=== PATIENT | male | born 1970 | race Caucasian/White ===

== ENCOUNTER 2024-04-21 21:47 | Emergency (ER) | payer MEDICARE, OTHER, SELFPAY ==
[2024-04-21 21:57] VITALS: BP 121/74
[2024-04-21 22:16] LABS: % Basophils 0.6 % (0-2); % Eosinophils 1.6 % (0-6); % Immature Granulocytes 0.3 % (0-0.5); % Lymphocytes 37.5 % (20.5-51.1); % Monocytes 8.6 % (1.7-9.3); % Neutrophils 51.4 % (42.2-75.2); Absolute Eosinophils 0.1 10^3/uL (0-0.7); Absolute Lymphocytes 2.5 10^3/uL (1.2-3.4); Absolute Monocytes 0.6 10^3/uL (0.1-0.6); Absolute Neutrophils 3.5 10^3/uL (1.4-6.5); Hematocrit 43.1 % (39.0-52.0); Hemoglobin 14.6 g/dL (13.0-18.0); Mean Corp Hgb Conc. 33.9 g/dL (33.0-37.0); Mean Corpuscular Hgb 30.4 pg (27.0-31.0); Mean Corpuscular Volume 89.6 fL (80.0-94.0); Mean Platelet Volume 10.3 fL (7.4-10.4); Nucleated Red Blood Cells % 0 % (-); Platelet Count 218 10^3/uL (130-400); Red Blood Cell Count 4.81 10^6/uL (4.70-6.10); Red Cell Dist. Width 13.3 % (11.5-14.5); White Blood Cell Count 6.8 10^3/uL (4.8-10.8)
[2024-04-21 22:32] LABS: ALT (SGPT) 38 U/L (0-50); AST (SGOT) 28 U/L (17-59); Albumin 4.5 g/dl (3.5-5.0); Alkaline Phosphatase 43 U/L (38-126); Blood Urea Nitrogen 24 mg/dl (9-20); Calcium 9.4 mg/dl (8.4-10.2); Carbon Dioxide 24 mmol/L (22-30); Chloride 103 mmol/L (98-107); Glucose 105 mg/dl (70-99); Potassium 4.3 mmol/L (3.5-5.1); Sodium 138 mmol/L (135-145); Total Bilirubin 0.7 mg/dl (0.2-1.3); Total Protein 7.1 g/dl (6.3-8.2); eGFR > 60.00
[2024-04-21 22:43] LABS: Troponin I < 0.012 ng/ml
[2024-04-22 01:02] VITALS: BP 111/69
--- NOTE | 2024-04-22 01:43 | ED.GENMED ---
History of Present Illness
General
Chief Complaint: Chest Pain
Source: patient
Exam Limitations: none
Time Seen by Provider: 04/22/24 01:34
History of Present Illness
History of Present Illness:
This is a 53 year old male that comes in with c/o left sided chest pain. Son states that he has had pain under his heart and in the middle of his chest all day. State that when he leans forward he has pain. States that this has been constant all
day. States that he has slight SOB with the pain. Patient states that he has a history of Gastritis. Denies any fever, chills, abd pain, nausea, vomiting, diarrhea, headache, dizziness, urinary burning.
Past History
Past History
ED Past Medical History: None; Negative Asthma, HTN, Hypercholesterolemia or NIDDM
ED Past Surgical History: None
Social History
Tobacco: Non-smoker
Alcohol: None
Drug: None
Personal:
Living: with family
Review of Systems
Review of Systems
All Other Systems: ROS reviewed and negative except as documented in HPI and ROS
Constitutional: Reports no symptoms; Denies fever or chills
EENT: Reports no symptoms
Respiratory: Reports trouble breathing (with pain); Denies cough
Cardiac: Reports chest pain
ABD/GI: Reports no symptoms; Denies abdominal pain, nausea, vomiting or diarrhea
: Reports no symptoms; Denies dysuria, frequency or urgency
Musculoskeletal: Reports no symptoms
Skin: Reports no symptoms
Neurological: Reports no symptoms; Denies dizzy or headache
Psychiatric: Reports no symptoms
Phy Exam
General Physical Exam
General Presentation: well appearing and no apparent distress
General age: appears stated age
General Skin: warm and dry
General Habitus: normal
General Mental: alert
General Hydration: appears well hydrated
ENT Exam
ENT Exam: TM's normal, pharynx normal and neck supple
Eye Exam
Eye Exam: EOMI
Cardiovascular Exam
Cardiovascular Exam: regular rate/rhythm, no edema and normal peripheral pulses
Pulmonary Exam
Pulmonary Exam: lungs clear, no respiratory distress, no rales, chest non tender, no crackles, no rhonchi, no wheezing and no cough
Gastrointestinal Exam
Gastrointestinal Exam: normal bowel sounds, soft, no organomegaly, no pulsatile mass, non distended and tender (Epigastric area with palpation)
Musculoskeletal Exam
Musculoskeletal Exam: full ROM and no edema
Skin Exam
Skin Exam: normal color, warm/dry, no rash and no petechia
Psychiatric Exam
Psychiatric Exam: normal mood/affect
Scores
Heart Score for Chest Pain Patients
STEMI patient?: No
History: Slightly or Non-Suspicious
ECG: Normal
Age: >45 - <65 years
Risk Factors: No Risk Factors
Troponin: </= Normal Limit
Heart Score for Chest Pain Patients: 1
Heart Score Risk: 2.5% MACE over next 6 weeks
Course
Orders/Labs/Results
Orders:
Orders
04/21/24 21:59
Electrocardiogram (*1) Urgent
Reason for Study: Chest Pain
EKG- Treatment ONCE
CXR2 [CR Chest - 2 Views ] Urgent
Comment:
Reason For Exam: chest pain
04/21/24 22:07
Complete Blood Count/With Diff Urgent
Comprehensive Metabolic Panel Urgent
Troponin I Urgent
04/22/24 01:42
Ketorolac [Toradol] 60 mg IM NOW STA
Pantoprazole [Protonix] 40 mg PO NOW STA
Sucralfate Suspension [Carafate Suspension] 1 gm PO NOW STA
Abnormal Lab Results
04/21/24
22:07
BUN 24 H mg/dl
(9-20)
Glucose 105 H mg/dl
(70-99)
04/21/24 22:07
04/21/24 22:07
Dehydration. Glucose nonfasting. Troponin <0.012
Vital Signs
Initial and Last Documented VS:
Initial Vital Signs
Temp Pulse Resp BP Pulse Ox
98.4 F 77 16 121/74 100
04/21/24 21:57 04/21/24 21:57 04/21/24 21:57 04/21/24 21:57 04/21/24 21:57
Last Documented Vital Signs
Temp Pulse Resp BP Pulse Ox
98.2 F 59 17 127/75 96
04/22/24 02:29 04/22/24 02:29 04/22/24 02:29 04/22/24 02:29 04/22/24 02:29
MDM/Problems Addressed
Differential Diagnosis Includes:
Gastritis, Costocondritis,
MDM/Problems Addressed:
This is a 53 year old male that comes in with c/o pain under the left breast and middle of his chest. Son states that when he leans forward or goes to get up he has discomfort. Patient also states that he has Gastritis.
Will check labs, Medicated with Toradol, Protonix and Carafate and then recheck.
Back into see patient. States that his pain is gone. Explained that this may be a combination of GERD and some costochondritis. Will give patient 2 prescriptions. The first being Protonix and the second Naproxen to help with discomfort. Patient to
follow up with the family doctor. Return with increased or changing pain, or any other concerns.
Chronic conditions affecting care:
NA
Acute Exacerbation and/or Progression of Chronic Illness:
NA
*Radiology
Radiology exam reviewed: preliminary read by ED provider (Chest- Negative for active disease. )
*Pulse Oximetry
Patient hypoxic: no
*EKG
Interpreted by ED Provider?: Yes
Heart Rate: 64
Rate: normal
Rhythm: sinus
Reasnor: normal axis
Interval: first degree heart block
QRS Pattern: normal QRS
Ischemia: no ischemia
*Wildlife Management Professor Interpretation
Rate: Wildlife Management Professor- N/A
*Critical Care Note
Total Time (30-74mins, 75-104mins- exclusive of procedures): Not Applicable
ED Attending Note
-
Portions of this chart may have been created with voice recognition software.� Occasional wrong word or��sound alike� substitutions may have occurred due to the inherent limitations of voice recognition software.
Discharge Plan
Departure
Patient Disposition: Home (Routine Discharge)
Date of Disposition: 04/22/24
Time of Disposition: 02:17
Patient with high blood pressure during this ER visit?: No
Condition: Good
Covid-19: Not Applicable
Discharge Problem:
GERD (gastroesophageal reflux disease), Costochondritis
Instructions: Acid Reflux and GERD in Adults (DC), Costochondritis (DC)
Prescriptions:
New
pantoprazole [Protonix] 40 mg tablet,delayed release (DR/EC)
40 mg PO DAILY Qty: 30 0RF
naproxen 500 mg tablet
500 mg PO BID Qty: 10 0RF
No Action
ondansetron 4 mg tablet,disintegrating
4 mg PO Q8H PRN (Reason: nausea and vomiting) 3 Days Qty: 12 0RF
Activity Restrictions/Additional Instructions:
As discussed, your blood work shows that you are a little dehydrated. Please increase your water intake to 8-8oz glasses daily. You you had two prescriptions sent to your pharmacy. The first is Protonix to help coat the stomach lining and prevent
reflux. The second is for pain that will help decreased inflammation that may be causing the chest discomfort with movement. Please follow up with the family doctor for recheck. IF YOU HAVE INCREASED OR CHANGING PAIN, OR YOU HAVE ANY OTHER CONCERNS
PLEASE RETURN TO THE EMERGENCY ROOM.
Interventions
Interventions:
*Risk Screen - Suicide Last Done: 04/21/24 21:57
*Neglect/Abuse Screening Last Done: 04/21/24 21:57
ED- Fall Risk Assessment Last Done: 04/22/24 02:29
*Nursing Disposition Last Done: 04/22/24 02:29
ED- Cardiac Assessment Last Done: 04/22/24 01:07
Discharge Date and Time
Discharge Date/Time: 04/22/24 02:31
Print Language: S[place]
[2024-04-22] MEDS: CARAFATE SUSPENSION 1 GM PO (01:49)
[2024-04-22] MEDS: TORADOL 60 MG IM (01:50)
[2024-04-22] MEDS: PROTONIX 40 MG PO (01:50)
[2024-04-22 02:29] VITALS: BP 127/75
== END 2024-04-22 02:31 | disposition home or self-care (01) ==
LOC: EMR 21:47
PROVIDERS: Emergency Medicine; EMERGENCY PHYSICIAN Student in an Organized Health Care Education/Training Program; FAMILY PHYSICIAN Specialist
DX: M94.0 Chondrocostal junction syndrome [Tietze] (principal); K21.9 Gastro-esophageal reflux disease without esophagitis
CPT/HCPCS: 99284; 96372; 71046; 80053; 84484; 85025; 93005